=== PATIENT | male | born 1935 | race African-American/Black ===

== ENCOUNTER 2018-06-03 07:59 | Inpatient (IN) ==
[2018-06-03] MEDS ORDERED: methylPREDNISolone SOD SUC 125 MG/2 ML VIAL IV STA (08:36)
[2018-06-03 08:48] LABS: Basophils % 0.4 % (0.0-0.8); Eosinophils # 0.2 10*3/uL (0.0-0.87); Eosinophils % 3.3 % (0.00-10.9); Hematocrit 42.8 VOL% (42.0-52.0); Hemoglobin 14.8 GM/DL (14.0-18.0); Immature Granulocytes % 0.4 %; Immature Granulocytes Absolute 0.02 #; Lymphocytes # 1.3 10*3/uL (1.4-4.0); Lymphocytes % 26.4 % (21.2-54.2); Mean Corpuscular HGB Conc 34.6 GM/DL (32-36); Mean Corpuscular Hemoglobin 28 PG (27-34); Mean Corpuscular Volume 80.3 FL (87-102); Mean Platelet Volume 10.4 FL (9.6-12.0); Monocytes # 0.7 10*3/uL (0.11-0.8); Neutrophils # 2.7 10*3/uL (1.4-7.4); Neutrophils % 55.5 % (38.7-73.9); Platelet Count 179 T/CUMM (130-400); Red Blood Count 5.33 MC/CUMM (3.8-5.5); Red Cell Distribution Width 13.6 % (9.3-17.3); White Blood Count 4.8 T/CUMM (4-12)
[2018-06-03] MEDS ORDERED: ALBUTEROL 2.5 MG/3 ML NEB RESP TX SCH (09:00)
[2018-06-03 09:09] LABS: Albumin 4.3 G/DL (3.4-5.0); Bilirubin,Total 0.5 MG/DL (0.2-1.0); Calcium 8.6 MG/DL (8.5-10.1); Osmolality,Calculated 281.3 MOS/KG (273-304); Potassium 4.3 MMOL/L (3.5-5.1); Total Protein 7.7 G/DL (6.4-8.3)
[2018-06-03] MEDS ORDERED: ONDANSETRON 4 MG/2 ML VIAL IV PRN (11:34)
[2018-06-03] MEDS ORDERED: ZALEPLON 5 MG CAPSULE PO PRN (11:34)
[2018-06-03] MEDS ORDERED: ACETAMINOPHEN 325 MG TABLET PO PRN (11:34)
[2018-06-03] MEDS ORDERED: ALBUTEROL/IPRATROPIUM 3 ML NEB RESP TX PRN (11:34)
[2018-06-03] MEDS ORDERED: cefTRIAXone 1,000 MG in SODIUM CHLORIDE 0.9% 100 ML IV SCH (12:00)
[2018-06-03] MEDS: ALBUTEROL/IPRATROPIUM 3 ML NEB RESP TX SCH ×2 (12:15→19:29)
[2018-06-03] MEDS: DOXYCYCLINE HYCLATE 100 MG CAPSULE PO SCH ×2 (13:24→20:56)
[2018-06-03] MEDS: methylPREDNISolone SOD SUC 40 MG/1 ML VIAL IV SCH (17:01)
[2018-06-03] MEDS: LOVASTATIN 20 MG TABLET PO SCH (17:01)
[2018-06-03] MEDS: DOCUSATE SODIUM 100 MG CAPSULE PO SCH (20:56)
[2018-06-03] MEDS: ENOXAPARIN 40 MG/0.4 ML SYRINGE SUBCUT SCH (20:57)
[2018-06-04] MEDS: ALBUTEROL/IPRATROPIUM 3 ML NEB RESP TX SCH ×4 (00:31→19:21)
[2018-06-04] MEDS: methylPREDNISolone SOD SUC 40 MG/1 ML VIAL IV SCH ×3 (01:49→18:07)
[2018-06-04 06:05] LABS: Calcium 8.5 MG/DL (8.5-10.1); Osmolality,Calculated 287.4 MOS/KG (273-304); Potassium 3.9 MMOL/L (3.5-5.1)
[2018-06-04] MEDS: PANTOPRAZOLE 40 MG TABLET PO SCH (08:48)
[2018-06-04] MEDS: DOXYCYCLINE HYCLATE 100 MG CAPSULE PO SCH ×2 (08:48→21:34)
[2018-06-04] MEDS: LORATADINE 10 MG TABLET PO SCH (08:48)
[2018-06-04] MEDS: LOSARTAN 50 MG TABLET PO SCH (08:48)
[2018-06-04] MEDS: DOCUSATE SODIUM 100 MG CAPSULE PO SCH ×2 (08:49→21:34)
[2018-06-04] MEDS: FLUTICASONE 50 MCG NASAL SPRAY 16 GM BOTTLE BOTH NARES SCH (08:55)
[2018-06-04] MEDS: LOVASTATIN 20 MG TABLET PO SCH (18:07)
[2018-06-04] MEDS: guaiFENesin/DM ER 600-30 MG TABLET PO PRN (21:34)
[2018-06-04] MEDS: ENOXAPARIN 40 MG/0.4 ML SYRINGE SUBCUT SCH (21:35)
[2018-06-05] MEDS: methylPREDNISolone SOD SUC 40 MG/1 ML VIAL IV SCH ×2 (00:48→08:31)
[2018-06-05] MEDS: ALBUTEROL/IPRATROPIUM 3 ML NEB RESP TX SCH ×4 (01:14→19:05)
[2018-06-05] MEDS: LOSARTAN 50 MG TABLET PO SCH (08:31)
[2018-06-05] MEDS: LORATADINE 10 MG TABLET PO SCH (08:31)
[2018-06-05] MEDS: PANTOPRAZOLE 40 MG TABLET PO SCH (08:31)
[2018-06-05] MEDS: DOCUSATE SODIUM 100 MG CAPSULE PO SCH ×2 (08:31→21:21)
[2018-06-05] MEDS: DOXYCYCLINE HYCLATE 100 MG CAPSULE PO SCH ×2 (08:31→21:21)
[2018-06-05] MEDS: FLUTICASONE 50 MCG NASAL SPRAY 16 GM BOTTLE BOTH NARES SCH (08:31)
[2018-06-05] MEDS ORDERED: ACETAMINOPHEN 325 MG TABLET PO PRN (15:47)
[2018-06-05] MEDS: SODIUM CHLORIDE 0.9% 1,000 ML IV SCH ×2 (16:17→23:27)
[2018-06-05 16:27] LABS: Lactic Acid 4.9 MMOL/L (0.4-2.0)
[2018-06-05] MEDS ORDERED: SODIUM CHLORIDE 0.9% 2,000 ML IV ONE (16:37)
[2018-06-05] MEDS ORDERED: LEVOFLOXACIN INJ 750 MG in PREMIX 1 EACH IV ONE (16:40)
[2018-06-05 16:53] LABS: Calcium 8.4 MG/DL (8.5-10.1); Osmolality,Calculated 302.3 MOS/KG (273-304); Potassium 3.9 MMOL/L (3.5-5.1)
[2018-06-05 17:34] LABS: Basophils % 0.1 % (0.0-0.8); Hematocrit 38.3 VOL% (42.0-52.0); Hemoglobin 13.4 GM/DL (14.0-18.0); Immature Granulocytes % 1.2 %; Immature Granulocytes Absolute 0.15 #; Lymphocytes # 0.8 10*3/uL (1.4-4.0); Lymphocytes % 6.5 % (21.2-54.2); Mean Corpuscular Hemoglobin 28 PG (27-34); Mean Corpuscular Volume 80.1 FL (87-102); Mean Platelet Volume 10.8 FL (9.6-12.0); Monocytes # 1.2 10*3/uL (0.11-0.8); Monocytes % 9.5 % (1.7-12.7); Neutrophils # 10.3 10*3/uL (1.4-7.4); Neutrophils % 82.7 % (38.7-73.9); Red Blood Count 4.78 MC/CUMM (3.8-5.5); Red Cell Distribution Width 14.6 % (9.3-17.3)
[2018-06-05 17:39] LABS: Platelet Count 231 T/CUMM (130-400); White Blood Count 12.5 T/CUMM (4-12)
[2018-06-05] MEDS: LOVASTATIN 20 MG TABLET PO SCH (17:51)
[2018-06-05] MEDS ORDERED: SODIUM CHLORIDE 0.9% 500 ML IV ONE (18:55)
[2018-06-05] MEDS ORDERED: methylPREDNISolone SOD SUC 40 MG/1 ML VIAL IV SCH (21:00)
[2018-06-05] MEDS: guaiFENesin/DM ER 600-30 MG TABLET PO PRN (21:21)
[2018-06-05] MEDS: ENOXAPARIN 40 MG/0.4 ML SYRINGE SUBCUT SCH (21:24)
[2018-06-05 21:25] LABS: Apearance,Urine CLEAR (Clear); Bacteria,Urine Occasional /HPF (Few); Bilirubin,Urine Negative (Negative); Blood, Urine Negative (Negative); Glucose,Urine (UA) Negative (Negative); Hyaline Casts,Urine 9 /LPF (0-3); Ketones,Urine Negative (Negative); Nitrite,Urine Negative (Negative); Protein,Urine Negative; Urine Color Yellow (Yellow); Urine Specific Gravity 1.013 (1.001-1.035); Urine Urobilinogen < 2.0 EU/DL (0.2-1.0); WBC,Urine 1 /HPF (0-6)
[2018-06-06] MEDS: ALBUTEROL/IPRATROPIUM 3 ML NEB RESP TX SCH ×4 (00:07→19:25)
[2018-06-06 00:57] LABS: Lactic Acid 4.2 MMOL/L (0.4-2.0)
[2018-06-06 04:42] LABS: Calcium 7.3 MG/DL (8.5-10.1); Osmolality,Calculated 300.7 MOS/KG (273-304); Potassium 4.5 MMOL/L (3.5-5.1)
[2018-06-06 05:53] LABS: Hemoglobin 11.8 GM/DL (14.0-18.0); Immature Granulocytes % 1.2 %; Immature Granulocytes Absolute 0.11 #; Lymphocytes # 0.6 10*3/uL (1.4-4.0); Lymphocytes % 6.3 % (21.2-54.2); Mean Corpuscular HGB Conc 34.7 GM/DL (32-36); Mean Corpuscular Hemoglobin 28 PG (27-34); Mean Corpuscular Volume 80.6 FL (87-102); Mean Platelet Volume 10.6 FL (9.6-12.0); Monocytes # 0.8 10*3/uL (0.11-0.8); Monocytes % 8.9 % (1.7-12.7); Neutrophils # 7.6 10*3/uL (1.4-7.4); Neutrophils % 83.6 % (38.7-73.9); Platelet Count 198 T/CUMM (130-400); Red Blood Count 4.22 MC/CUMM (3.8-5.5); Red Cell Distribution Width 14.6 % (9.3-17.3)
[2018-06-06] MEDS: SODIUM CHLORIDE 0.9% 1,000 ML IV SCH (07:38)
[2018-06-06] MEDS ORDERED: predniSONE 20 MG TABLET PO SCH (09:00)
[2018-06-06] MEDS: LORATADINE 10 MG TABLET PO SCH (09:20)
[2018-06-06] MEDS: PANTOPRAZOLE 40 MG TABLET PO SCH (09:20)
[2018-06-06] MEDS: FLUTICASONE 50 MCG NASAL SPRAY 16 GM BOTTLE BOTH NARES SCH (09:20)
[2018-06-06] MEDS: DOXYCYCLINE HYCLATE 100 MG CAPSULE PO SCH ×2 (09:20→23:14)
[2018-06-06] MEDS: DOCUSATE SODIUM 100 MG CAPSULE PO SCH ×2 (09:20→23:14)
[2018-06-06] MEDS: CLORAZEPATE 3.75 MG TABLET PO SCH ×2 (11:02→23:14)
[2018-06-06] MEDS: methylPREDNISolone SOD SUC 40 MG/1 ML VIAL IV SCH (16:59)
[2018-06-06] MEDS: LOVASTATIN 20 MG TABLET PO SCH (16:59)
[2018-06-06] MEDS: guaiFENesin/DM ER 600-30 MG TABLET PO PRN (23:14)
[2018-06-06] MEDS: ENOXAPARIN 40 MG/0.4 ML SYRINGE SUBCUT SCH (23:14)
[2018-06-07] MEDS: ALBUTEROL/IPRATROPIUM 3 ML NEB RESP TX SCH ×4 (00:52→18:59)
[2018-06-07 05:33] LABS: Basophils % 0.2 % (0.0-0.8); Hematocrit 31.8 VOL% (42.0-52.0); Immature Granulocytes % 1.5 %; Immature Granulocytes Absolute 0.09 #; Lymphocytes # 0.6 10*3/uL (1.4-4.0); Lymphocytes % 10.4 % (21.2-54.2); Mean Corpuscular HGB Conc 34.6 GM/DL (32-36); Mean Corpuscular Hemoglobin 28 PG (27-34); Mean Corpuscular Volume 80.7 FL (87-102); Mean Platelet Volume 10.6 FL (9.6-12.0); Monocytes # 0.6 10*3/uL (0.11-0.8); Monocytes % 9.2 % (1.7-12.7); Neutrophils # 4.7 10*3/uL (1.4-7.4); Neutrophils % 78.7 % (38.7-73.9); Platelet Count 179 T/CUMM (130-400); Red Blood Count 3.94 MC/CUMM (3.8-5.5); Red Cell Distribution Width 14.6 % (9.3-17.3)
[2018-06-07] MEDS: methylPREDNISolone SOD SUC 40 MG/1 ML VIAL IV SCH ×3 (05:34→22:34)
[2018-06-07 05:53] LABS: Calcium 7.3 MG/DL (8.5-10.1); Osmolality,Calculated 297.6 MOS/KG (273-304); Potassium 4.4 MMOL/L (3.5-5.1)
[2018-06-07] MEDS: DOXYCYCLINE HYCLATE 100 MG CAPSULE PO SCH ×2 (08:56→22:37)
[2018-06-07] MEDS: CLORAZEPATE 3.75 MG TABLET PO SCH ×2 (08:56→22:37)
[2018-06-07] MEDS: FLUTICASONE 50 MCG NASAL SPRAY 16 GM BOTTLE BOTH NARES SCH (08:57)
[2018-06-07] MEDS: DOCUSATE SODIUM 100 MG CAPSULE PO SCH ×2 (08:57→22:37)
[2018-06-07] MEDS: PANTOPRAZOLE 40 MG TABLET PO SCH (08:57)
[2018-06-07] MEDS: LORATADINE 10 MG TABLET PO SCH (08:57)
[2018-06-07] MEDS: LOVASTATIN 20 MG TABLET PO SCH (17:42)
[2018-06-07] MEDS: ENOXAPARIN 40 MG/0.4 ML SYRINGE SUBCUT SCH (22:37)
[2018-06-08] MEDS: ALBUTEROL/IPRATROPIUM 3 ML NEB RESP TX SCH ×4 (01:09→19:07)
[2018-06-08 04:25] LABS: Hematocrit 32.7 VOL% (42.0-52.0); Hemoglobin 11.1 GM/DL (14.0-18.0); Immature Granulocytes Absolute 0.09 #; Lymphocytes # 0.7 10*3/uL (1.4-4.0); Lymphocytes % 15.6 % (21.2-54.2); Mean Corpuscular HGB Conc 33.9 GM/DL (32-36); Mean Corpuscular Hemoglobin 27 PG (27-34); Mean Platelet Volume 10.6 FL (9.6-12.0); Monocytes # 0.3 10*3/uL (0.11-0.8); Monocytes % 6.8 % (1.7-12.7); Neutrophils # 3.3 10*3/uL (1.4-7.4); Neutrophils % 75.6 % (38.7-73.9); Platelet Count 195 T/CUMM (130-400); Red Blood Count 4.09 MC/CUMM (3.8-5.5); Red Cell Distribution Width 14.6 % (9.3-17.3); White Blood Count 4.4 T/CUMM (4-12)
[2018-06-08 04:39] LABS: Calcium 7.9 MG/DL (8.5-10.1); Osmolality,Calculated 287.1 MOS/KG (273-304); Potassium 4.3 MMOL/L (3.5-5.1)
[2018-06-08] MEDS: methylPREDNISolone SOD SUC 40 MG/1 ML VIAL IV SCH ×2 (06:08→20:24)
[2018-06-08] MEDS: PANTOPRAZOLE 40 MG TABLET PO SCH (09:23)
[2018-06-08] MEDS: DOXYCYCLINE HYCLATE 100 MG CAPSULE PO SCH ×2 (09:23→20:24)
[2018-06-08] MEDS: CLORAZEPATE 3.75 MG TABLET PO SCH ×2 (09:23→20:24)
[2018-06-08] MEDS: FLUTICASONE 50 MCG NASAL SPRAY 16 GM BOTTLE BOTH NARES SCH (09:23)
[2018-06-08] MEDS: LORATADINE 10 MG TABLET PO SCH (09:23)
[2018-06-08] MEDS: DOCUSATE SODIUM 100 MG CAPSULE PO SCH ×2 (09:23→20:24)
[2018-06-08] MEDS: amLODIPine 10 MG TABLET PO SCH (17:49)
[2018-06-08] MEDS: LOVASTATIN 20 MG TABLET PO SCH (17:51)
[2018-06-08] MEDS: ENOXAPARIN 40 MG/0.4 ML SYRINGE SUBCUT SCH ×2 (20:25→20:30)
[2018-06-09] MEDS: ALBUTEROL/IPRATROPIUM 3 ML NEB RESP TX SCH ×2 (00:07→07:37)
[2018-06-09] MEDS: amLODIPine 10 MG TABLET PO SCH (09:04)
[2018-06-09] MEDS: FLUTICASONE 50 MCG NASAL SPRAY 16 GM BOTTLE BOTH NARES SCH (09:04)
[2018-06-09] MEDS: methylPREDNISolone SOD SUC 40 MG/1 ML VIAL IV SCH (09:04)
[2018-06-09] MEDS: DOCUSATE SODIUM 100 MG CAPSULE PO SCH (09:05)
[2018-06-09] MEDS: CLORAZEPATE 3.75 MG TABLET PO SCH (09:05)
[2018-06-09] MEDS: DOXYCYCLINE HYCLATE 100 MG CAPSULE PO SCH (09:05)
[2018-06-09] MEDS: LORATADINE 10 MG TABLET PO SCH (09:05)
[2018-06-09] MEDS: PANTOPRAZOLE 40 MG TABLET PO SCH (09:05)
[2018-06-09 11:55] VITALS: BP 131/85
== END 2018-06-09 14:13 | disposition home or self-care (01) | DRG 190 ==
LOC: N.ED 07:59 → SUATTDRO 11:34 → N.EDINP 11:34 → N.2W 12:14 → N.2E 14:11
PROVIDERS: ADMIT Family Medicine; ATTEND Internal Medicine